=== PATIENT | female | born 1975 | race Hispanic/Latino ===

== ENCOUNTER 2024-01-04 19:31 | Emergency (ER) | payer SELFPAY ==
[~2024-01-04] VITALS: Ht 160 cm; Wt 68.0 kg
[~2024-01-04 19:31] MED LIST: CYCLOBENZAPRINE5 MG PO; ONDANSETRON ODT4 MG PO
[2024-01-04] MEDS ORDERED: SODIUM CHLORIDE FLUSH 10 ML SYR IV PRN (20:00)
[2024-01-04 20:12] LABS: BASOPHILS % 0.2 % (0.0-1.0); EOSINOPHILS # (AUTO) 0.1 (0.0-0.4); EOSINOPHILS % 1.3 % (0.0-6.0); HEMOGLOBIN 15.9 g/dL (12.0-16.0); LYMPHOCYTES # (AUTO) 2.5 (1.0-3.2); LYMPHOCYTES % 26.4 % (18.0-39.1); MEAN CORPUSCULAR HEMOGLOBIN 31.7 pg (28-32); MEAN CORPUSCULAR HGB CONC 33.8 g/dL (31-35); MEAN CORPUSCULAR VOLUME 93.6 fL (81-99); MONOCYTES # (AUTO) 0.5 (0.2-0.8); MONOCYTES % 5.2 % (4.4-11.3); NEUTROPHILS # (AUTO) 6.2 (2.1-6.9); NEUTROPHILS % 66.7 % (38.7-80.0); PLATELET COUNT 346 x10e3/uL (140-360); RED BLOOD COUNT 5.02 x10e6/uL (3.6-5.1); WHITE BLOOD COUNT 9.29 x10e3/uL (4.8-10.8)
[2024-01-04] MEDS: LORAZEPAM INJ 2 MG/ML VIAL IV ONE (20:19)
[2024-01-04 20:33] LABS: ALBUMIN 4.9 g/dL (3.5-5.0); ALBUMIN/GLOBULIN RATIO 1.4 (0.8-2.0); ANION GAP 21.6 mmol/L (8-16); BILIRUBIN,TOTAL 0.5 mg/dL (0.2-1.2); CALCIUM 10.6 mg/dL (8.4-10.2); CREATININE, SERUM 0.9 mg/dL (0.57-1.11); POTASSIUM 4.6 mmol/L (3.5-5.1); TOTAL PROTEIN 8.5 g/dL (6.5-8.1)
[2024-01-04 20:39] LABS: TROPONIN I 0.001 ng/mL (0-0.300)
[2024-01-04 22:31] VITALS: PULSE 104; RESP 18; TEMP 98.3; O2SAT 97
== END 2024-01-04 22:40 | disposition home or self-care (01) ==
LOC: ER 19:40
DX: R00.2 Palpitations (principal); E11.65 Type 2 diabetes mellitus with hyperglycemia; F41.9 Anxiety disorder, unspecified; E78.5 Hyperlipidemia, unspecified; G62.9 Polyneuropathy, unspecified; R94.31 Abnormal electrocardiogram [ECG] [EKG]
CPT/HCPCS: 36415; 71045; 80053; 84484; 85025; 93005; 94760; 99284; J2060

== ENCOUNTER 2024-01-06 09:31 | Emergency (ER) | payer OTHER, MEDICARE ==
[~2024-01-06] VITALS: Ht 160 cm; Wt 68.0 kg
[2024-01-06 09:42] VITALS: PULSE 103; RESP 16; TEMP 97.8; O2SAT 99
[2024-01-06] MEDS ORDERED: POTASSIUM CHLORIDE 20MEQ/100ML 100 ML IV STA (10:18)
[2024-01-06 10:20] LABS: ABG PCO2 33 mmHg (35-45); ABG PH 7.49 (7.35-7.45); ABG PO2 87 mmHg (80-105)
[2024-01-06 10:21] LABS: ABG HCO3 26 mmol/L (22-26); ABG TCO2 27
[2024-01-06 11:00] LABS: BASOPHILS % 0.3 % (0.0-1.0); EOSINOPHILS % 0.4 % (0.0-6.0); HEMATOCRIT 44.2 % (34.2-44.1); HEMOGLOBIN 14.6 g/dL (12.0-16.0); LYMPHOCYTES # (AUTO) 1.4 (1.0-3.2); LYMPHOCYTES % 14.6 % (18.0-39.1); MEAN CORPUSCULAR HEMOGLOBIN 32.4 pg (28-32); MONOCYTES # (AUTO) 0.4 (0.2-0.8); MONOCYTES % 3.9 % (4.4-11.3); NEUTROPHILS # (AUTO) 7.9 (2.1-6.9); NEUTROPHILS % 80.2 % (38.7-80.0); PLATELET COUNT 293 x10e3/uL (140-360); RED BLOOD COUNT 4.51 x10e6/uL (3.6-5.1); RED CELL DISTRIBUTION WIDTH 11.8 % (11.7-14.4); WHITE BLOOD COUNT 9.79 x10e3/uL (4.8-10.8)
[2024-01-06 11:21] LABS: ALBUMIN 4.4 g/dL (3.5-5.0); ALBUMIN/GLOBULIN RATIO 1.3 (0.8-2.0); ANION GAP 15.1 mmol/L (8-16); BILIRUBIN,TOTAL 0.9 mg/dL (0.2-1.2); CALCIUM 9.6 mg/dL (8.4-10.2); CREATININE, SERUM 0.96 mg/dL (0.57-1.11); POTASSIUM 4.1 mmol/L (3.5-5.1); TOTAL PROTEIN 7.7 g/dL (6.5-8.1)
[2024-01-06] MEDS: POTASSIUM CHLORIDE 20 MEQ TAB CR PO STA (12:05)
[2024-01-06] MEDS ORDERED: ONDANSETRON ODT4 MG PO (12:10)
== END 2024-01-06 12:50 | disposition home or self-care (01) ==
LOC: ER 09:33
DX: R53.1 Weakness (principal); E87.6 Hypokalemia; R94.31 Abnormal electrocardiogram [ECG] [EKG]
CPT/HCPCS: 36415; 36600; 80053; 82805; 82948; 85025; 93005; 99283